=== PATIENT | female | born 1950 | race Caucasian/White ===

== ENCOUNTER → 2016-11-24 | Outpatient (CLI) | payer MEDICARE ==
[~2016-11-24] MED LIST: ANAS1TAB5 PO; CALC1TAB17 PO; DIAZ2TAB PO; DULO60CA25 PO; FENT1PAT5 TD; GABA-215 PO; LEVO25TA51 PO; SALINE FLUSH 10ml SYRINGE ONE; SIMV40TA82 PO; [UNRECOGNIZED DRUG - CODE] PO
--- NOTE | 2016-11-24 12:48 | DI ---
Indication: ITS.REASON: C50.411 Breast cancer PROCEDURE: NM BONE SCAN, WHOLE BODY: Encounter: Subsequent Comparison: Bone scan dated August 18, 2016 Technique: 26.7 mCi of Tc-99m MDP was administered intravenously. Anterior and posterior planar whole-body and spot images were obtained. FINDINGS: The scan demonstrates the expected normal biodistribution for the radiotracer. Multifocal right anterior rib uptake at the costochondral cartilage is again noted similar to the prior study. There are two areas of similar location uptake in the left anterior ribs as well. Left mandibular and sternal uptake is unchanged. There is more prominent uptake in the right L5 vertebra compared to the prior study. Degenerative uptake in both knees and mid feet. Degenerative uptake in the left upper cervical spine. Stable foci of mild uptake in the right posterior mid to lower thoracic spine. Impression: Increasing prominence of uptake at the L5 level, otherwise stable exam. .
== END ==
LOC: IMA 08:34
PROVIDERS: ATTEND Internal Medicine Hematology & Oncology
DX: C50.411 Malignant neoplasm of upper-outer quadrant of right female breast (principal); R94.8 Abnormal results of function studies of other organs and systems
CPT/HCPCS: 78306; A9503

== ENCOUNTER → 2016-12-16 | Outpatient (CLI) | payer MEDICARE ==
--- NOTE | 2016-12-16 15:48 | DI ---
Indication: ITS.REASON: Z79.899 Other manager intermediate (current) drug therapy PROCEDURE: NM MUGA, CARDIAC WALL MOTION: Encounter: Subsequent Comparison: September 23, 2016 RESTING RADIONUCLIDE EQUILIBRIUM ANGIOCARDIOGRAM: Following intravenous administration of 31.9mCi of technetium-99m pyrophosphate, with red blood cell labeling by in vitro technique, cardiac blood pool imaging was obtained in the three standard views. The left ventricular ejection fraction was 52.8%. Impression: Left ventricular ejection fraction of 52.8%. This is increased from 50.4% previously. .
== END ==
LOC: IMA 13:16
PROVIDERS: ATTEND Internal Medicine Hematology & Oncology
DX: Z79.899 Other long term (current) drug therapy (principal)
CPT/HCPCS: 78472; A9560

== ENCOUNTER 2017-02-06 11:50 | Observation (INO) ==
[2017-02-06] MEDS ORDERED: SALINE FLUSH 10ml SYRINGE IVF PRN (12:32)
--- NOTE | 2017-02-06 12:35 | Emergency Department Report ---
Chest Pain HPI - General Chief Complaint: Arrhythmia/Palpitations <Gorge Aguillon Q - 02/06/17 17:41> Stated Complaint: low heart rate <Gorge Aguillon Q - 02/06/17 17:41> Time Seen by Provider: 02/06/17 12:25 <Gorge Aguillon Q - 02/06/17 17:41> Source: patient, family (daughter) <Mary Beth Parekh 02/06/17 12:37> Mode of arrival: ambulatory <Mary Beth Parekh 02/06/17 12:37> Limitations: no limitations <Mary Beth Parekh 02/06/17 12:37> - History of Present Illness HPI narrative: She went to the cancer center today to get her chemotherapy for breast cancer with mets to bone. They noted that her pulse was in the 40s so they sent her here to ER for evaluation. She is here with her daughter. She has been told in the past that her heart rate has been low. She has gotten several MUGA scans and they noted that her HR was low but upon recheck it was normal. She was evaluated by a college admissions counselor but is unsure of his name. She also does report that yesterday evening she was having some chest pain in the center of her chest and on the left side. She denies any dizziness or lightheadedness but does feel slightly SOA. <Mary Beth Parekh N 02/06/17 12:37> MD complaint: chest pain <Mary Beth Parekh N 02/06/17 12:37> Occurred At: home <Mary Beth Parekh 02/06/17 12:37> Onset (ago): day(s) (1) <Mary Beth Parekh 02/06/17 12:37> Duration: constant <Mary Beth Parekh 02/06/17 12:37> Onset: during rest <Mary Beth Parekh 02/06/17 12:37> Pain location: substernal <Mary Beth Parekh 02/06/17 12:37> Severity: moderate <Mary Beth Parekh 02/06/17 12:37> Quality: sharp <Mary Beth Parekh 02/06/17 12:37> Pain radiation: none <LadanrosaMary Beth N - 02/06/17 12:37> Relieving factors: nothing <LadanrosaMary Beth N 02/06/17 12:37> Exacerbating factors: nothing <LadanrosaMary Beth N 02/06/17 12:37> Context: other (does get chemo therapy) <LadanrosaMary Beth N 02/06/17 12:37> Associated symptoms: other (bradycardia) <LadanrosaMary Beth N 02/06/17 12:37> Aspirin Today: unknown <LadanrosaMary Beth N 02/06/17 12:37> Nitro Today: no nitro taken today <LadanrosaMary Beth N 02/06/17 12:37> Treatments prior to arrival chest pain: none <LadanrosaMary Beth N 02/06/17 12:37> - Related Data On Oral Contraceptives: No <LadanrosaMary Beth 02/06/17 12:37> Home Medications Medication Instructions Recorded Confirmed Celecoxib [Celecoxib] 200 mg PO DAILY 02/06/17 02/06/17 Duloxetine [Cymbalta] 60 mg PO DAILY 02/06/17 02/06/17 FentaNYL PATCH [Duragesic Patch] 1 patch TD Q3D 02/06/17 02/06/17 Fexofenadine HCl [Allergy Relief] 180 mg PO DAILY 02/06/17 02/06/17 Gabapentin [Gabapentin] 300 mg PO TID 02/06/17 02/06/17 Hydrocodone/Acetaminophen [Lortab 1 tab PO Q4H PRN 02/06/17 02/06/17 5-325 mg Tablet] LORazepam [Ativan] 0.5 mg PO Q6HPRN PRN 02/06/17 02/06/17 Levothyroxine Sodium [Levoxyl] 25 mcg PO DAILY 02/06/17 02/06/17 Oxymetazoline HCl [Nasal [place]] 1 spray NS DAILY 02/06/17 02/06/17 Simvastatin [Zocor] 40 mg PO HS 02/06/17 02/06/17 Vitamin E Acetate [Vitamin E] 800 unit PO DAILY 02/06/17 02/06/17 <Gorge Aguillon Q - 02/06/17 17:41> Allergies Allergy/AdvReac Type Severity Reaction Status Date / Time acetaminophen AdvReac Severe VOMITING Verified 02/06/17 13:03 oxycodone AdvReac Severe VOMITING Verified 02/06/17 13:03 hydrocodone AdvReac Unknown VOMITING Verified 02/06/17 13:03 <Travis Aguillonn Q - 02/06/17 17:41> Review of Systems Constitutional: Denies: fever, chills, weakness, weight change <Nold,Mary Beth N 02/06/17 12:37> Cardiovascular: Reports: chest pain, dyspnea on exertion. Denies: palpitations , edema, syncope <Nold,Mary Beth N 02/06/17 12:37> Respiratory: Denies: cough, dyspnea, wheezes <Nold,Mary Beth N 02/06/17 12:37> Gastrointestinal: Denies: abdominal pain, nausea, vomiting, diarrhea, constipation <Nold,Mary Beth N 02/06/17 12:37> Musculoskeletal: Denies: back pain <Nold,Mary Beth N 02/06/17 12:37> Neurological: Denies: headache <Nold,Mary Beth 02/06/17 12:37> PFSH Patient Stated Medical History Hypotension Yes Other Cardiology Yes: BRADYCARDIA, HIGH CHOLESTEROL Gastroesophageal Reflux Yes Disease Other Musculoskeletal Yes: ARTHRITIS Other Reproductive Yes: BREAST CANCER <HennaGorge alanis Q - 02/06/17 17:41> Patient Stated Medical History Hypotension Yes Other Cardiology Yes: BRADYCARDIA, HIGH CHOLESTEROL Gastroesophageal Reflux Yes Disease Other Musculoskeletal Yes: ARTHRITIS Other Reproductive Yes: BREAST CANCER Breast cancer with mets hypothyroidism hyperlipidemia <NoAlannaa 02/06/17 12:37> Surgical History: Right sided mastectomy. partial thyroidectomy. appendectomy. hysterectomy <NorosaMary Beth N 02/06/17 12:37> Smoking status: Never smoker <Nold,Mary Beth N 02/06/17 12:37> Substance use type: does not use <Nold,Mary Beth N 02/06/17 12:37> Alcohol intake frequency: does not drink <NoldMary Beth N 02/06/17 12:37> Physical Exam - Limitations Limitations: no limitations <NoldMary Beth N 02/06/17 12:37> - General General appearance: alert, in no apparent distress <Mary Beth Parehk 02/06/17 12:37> - Normal Exams: ENMT:: No facial trauma, nasal exudates, pharyngeal erythema, or exudates are noted <Mary Beth Parekh 02/06/17 12:37> Neck:: Full range of motion, without adenopathy, JVD, bruits or thyromegaly < LadanMary Beth 02/06/17 12:37> Chest/Respirations:: Clear all reeder, with good airflow, and symmetry bilaterally <Mary Beth Parekh 02/06/17 12:37> Cardiovascular:: without murmur or gallop, Pulses 2+ all extremities, capillary refill, <2 seconds all extremities <Mary Beth Parekh 02/06/17 12:37> Abdomen:: Bowel sounds positive, soft, non-tender, non-distended, no hepatosplenomegaly, masses or bruits noted <Mary Beth Parekh 02/06/17 12:37> Lymphatic:: No lymphadenopathy, or lymphedema noted <Mary Beth Parekh 02/06/17 12:37> Integumentary:: No rashes, hives, or bruising noted <Mary Beth Parekh 02/06/17 12:37> Neurological:: Patient is alert, and oriented, cranial nerves, motor/sensory/ cerebellar, exams w/o gross deficits, to observation <Mary Beth Parekh 12:37> Psychiatric:: Patient exhibits, appropriate attention, emotion and affect < Mary Beth Parekh [facility] 02/06/17 12:37> - Cardiovascular Cardiovascular exam: Absent: regular rate (bradycardia) <Mary Beth Parekh 02/06 12:37> Course Vital Signs Temperature 98.0 F 02/06/17 11:52 Pulse Rate 41 L 02/06/17 11:52 Respiratory Rate 18 02/06/17 11:52 Blood Pressure 155/70 H 02/06/17 11:52 Pulse Oximetry 99 02/06/17 11:52 Temperature 98.4 F 02/06/17 15:00 Pulse Rate 45 L 02/06/17 15:00 Respiratory Rate 41 H 02/06/17 15:00 Blood Pressure 168/70 H 02/06/17 15:00 Pulse Oximetry 99 02/06/17 15:00 <Gorge Aguillon Q - 02/06/17 17:41> Vital Signs Temperature 98.0 F 02/06/17 11:52 Pulse Rate 41 L 02/06/17 11:52 Respiratory Rate 18 02/06/17 11:52 Blood Pressure 155/70 H 02/06/17 11:52 Pulse Oximetry 99 02/06/17 11:52 Temperature 98.4 F 02/06/17 15:00 Pulse Rate 45 L 02/06/17 15:00 Respiratory Rate 41 H 02/06/17 15:00 Blood Pressure 168/70 H 02/06/17 15:00 Pulse Oximetry 99 02/06/17 15:00 <IzabellaAlannaa N - 02/06/17 13:50> Chest Pain - MDM Narrative Medical decision making narrative: CBC is normal, BMP is normal. Troponin is normal. Chest xray report reviewed. Her pulse rate has remained in the upper 30s and lower 40s. She does continue to deny any chest pain at this time, dizziness, lightheadedness, or SOA. Did call Dr Samuel office and they do have Dr Eason listed as college admissions counselor. Spoke with Dr Eason and he will go ahead and admit at this time. <Mary Beth Parekh Rashida - 02/06/17 16:46> - Differential Diagnosis Likely: stable angina, unstable angina pectoris, atypical chest pain, chest pain (PE) <Mary Beth Parekh Rashida - 02/06/17 12:37> - Lab Data Attestation: I reviewed the patient's lab results. <Mary Beth Parekh Rashida - 02/06/17 16:46> Result diagrams: 02/06/17 12:59 02/06/17 12:59 <Gorge Aguillon Q - 02/06/17 17:41> Lab Results 02/06/17 02/06/17 Range/Units 12:59 12:59 WBC 6.6 (4.5-11.0) T/MM3 RBC 4.62 (4.00-5.20) M/MM3 Hgb 13.0 (12-16) GM/DL Hct 39.3 (36-46) % MCV 85.1 (80-100) UM3 MCH 28.1 (26-34) UUG MCHC 33.1 (31-37) GM/DL RDW Std Deviation 48.1 (36.9-50.2) FL Plt Count 272 (130-400) T/MM3 MPV 9.9 (9.4-12.4) UM3 Immature Gran % (Auto) 0.2 (0.0-0.5) % Neut % (Auto) 51.7 (33-66) % Lymph % (Auto) 37.3 (23-45) % Levy % (Auto) 7.7 (0-9.0) % Eos % (Auto) 2.6 (0-4) % Baso % (Auto) 0.5 (0-2) % Neut # 3.4 (1.8-7.7) T/MM3 Lymph # 2.5 (1-4.8) T/MM3 Levy # 0.5 (0-0.8) T/MM3 Eos # 0.2 (0-0.5) T/MM3 Baso # 0.0 (0-0.2) T/MM3 Abs Immat Gran (auto) 0.01 (0.00-0.03) T/MM3 Turbidity 20 (0-20) Sodium 146 H (134-144) MEQ/L Potassium 3.6 (3.6-5) MEQ/L Chloride 109 H (98-107) MEQ/L Carbon Dioxide 25 (22-30) MEQ/L Anion Gap 12 (5-15) MEQ/L BUN 9.0 (7-17) MG/DL Creatinine 0.6 L (0.7-1.2) MG/DL GFR Calculation 100 BUN/Creatinine Ratio 15 (6-26) RATIO Glucose 89 (65-110) MG/DL Calculated Osmolality 279 (261-280) MOSM/KG Calcium 9.8 (8.4-10.2) MG/DL Icterus Index 2 (0-7) Troponin I 0.012 (0-0.12) ng/ml Specimen Hemolysis 15 (0-25) <Gorge Aguillon Q - 02/06/17 17:41> Lab Results 02/06/17 02/06/17 Range/Units 12:59 12:59 WBC 6.6 (4.5-11.0) T/MM3 RBC 4.62 (4.00-5.20) M/MM3 Hgb 13.0 (12-16) GM/DL Hct 39.3 (36-46) % MCV 85.1 (80-100) UM3 MCH 28.1 (26-34) UUG MCHC 33.1 (31-37) GM/DL RDW Std Deviation 48.1 (36.9-50.2) FL Plt Count 272 (130-400) T/MM3 MPV 9.9 (9.4-12.4) UM3 Immature Gran % (Auto) 0.2 (0.0-0.5) % Neut % (Auto) 51.7 (33-66) % Lymph % (Auto) 37.3 (23-45) % Levy % (Auto) 7.7 (0-9.0) % Eos % (Auto) 2.6 (0-4) % Baso % (Auto) 0.5 (0-2) % Neut # 3.4 (1.8-7.7) T/MM3 Lymph # 2.5 (1-4.8) T/MM3 Levy # 0.5 (0-0.8) T/MM3 Eos # 0.2 (0-0.5) T/MM3 Baso # 0.0 (0-0.2) T/MM3 Abs Immat Gran (auto) 0.01 (0.00-0.03) T/MM3 Turbidity 20 (0-20) Sodium 146 H (134-144) MEQ/L Potassium 3.6 (3.6-5) MEQ/L Chloride 109 H (98-107) MEQ/L Carbon Dioxide 25 (22-30) MEQ/L Anion Gap 12 (5-15) MEQ/L BUN 9.0 (7-17) MG/DL Creatinine 0.6 L (0.7-1.2) MG/DL GFR Calculation 100 BUN/Creatinine Ratio 15 (6-26) RATIO Glucose 89 (65-110) MG/DL Calculated Osmolality 279 (261-280) MOSM/KG Calcium 9.8 (8.4-10.2) MG/DL Icterus Index 2 (0-7) Troponin I 0.012 (0-0.12) ng/ml Specimen Hemolysis 15 (0-25) <Mary Beth Parekh N - 02/06/17 13:50> - Radiology Data Attestation: I reviewed the patient's radiology results. <Mary Beth Parekh N - 10/24 16:46> Small right pleural effusion and basilar airspace disease, some of which may be chronic based on the patient's prior exams although an acute pneumonia cannot be entirely excluded. <Mary Beth Parekh N - 02/06/17 16:46> - ECG Data Tracing #1 ECG initial impression date: 02/06/17 <Travis Aguillonn Q - 02/06/17 17:41> ECG initial impression time: 14:48 <HennaGorge alanis Q - 02/06/17 17:41> Arrhythmias present: sinus félix <HennaGorge alanis Q - 02/06/17 17:39> HI/QRS/ST segment/T wave changes: non-specific ST-T wave changes <KeystoneGorge alanis Q - 02/06/17 17:39> Conduction abnormalities present: 2nd degree AV block, Mobitz II <Travis Aguillonn Q - 02/06/17 17:41> ECG compared to prior tracings: there are no prior tracings available for comparison <Keystone,Gorge Q - 02/06/17 17:41> Disposition Clinical Impression: Bradycardia <HennaGorge Q - 02/06/17 17:41> Disposition: 02 To [facility] <HennaGorge Q - 02/06/17 17:41> Condition: Stable <KeystoneGorge alanis Q - 02/06/17 17:41> Instructions: <Gorge Aguillon Q - 02/06/17 17:41> Prescriptions: No Action Levothyroxine Sodium [Levoxyl] 25 mcg PO DAILY FentaNYL PATCH [Duragesic Patch] 1 patch TD Q3D Duloxetine [Cymbalta] 60 mg PO DAILY Celecoxib [Celecoxib] 200 mg PO DAILY Vitamin E Acetate [Vitamin E] 800 unit PO DAILY Simvastatin [Zocor] 40 mg PO HS Gabapentin [Gabapentin] 300 mg PO TID Hydrocodone/Acetaminophen [Lortab 5-325 mg Tablet] 1 tab PO Q4H PRN PRN Reason: Pain Oxymetazoline HCl [Nasal [place]] 1 spray NS DAILY Fexofenadine HCl [Allergy Relief] 180 mg PO DAILY LORazepam [Ativan] 0.5 mg PO Q6HPRN PRN PRN Reason: Anxiety <Gorge Aguillon Q - 02/06/17 17:41> Referrals: Jose Samuel MD [Primary Care Provider] - <Gorge Aguillon Q - 02/06/17 17:41> Forms: <Gorge Aguillon Q - 02/06/17 17:41> Time of Disposition: 13:50 <Mary Beth Parekh N - 02/06/17 13:50> - Seen By: midlevel <Mary Beth Parekh N - 02/06/17 13:50>
--- NOTE | 2017-02-06 13:27 | XRay Report ---
INDICATION: chest pain PROCEDURE: CHEST 2-VIEWS UPRIGHT (PA & LAT) Encounter: Initial COMPARISON: February 17, 2014 FINDINGS: Right IJ port catheter remains in place. Small right pleural effusion, improved from the prior study. There is some hazy airspace opacity in the right lung base which may be chronic. Upper lung reeder are clear. No pneumothorax. Heart size and mediastinal contours are within normal limits. Mild degenerative change in the spine. Impression: Small right pleural effusion and basilar airspace disease, some of which may be chronic based on the patient's prior exams although an acute pneumonia cannot be entirely excluded. Recommend clinical and laboratory correlation. .
[2017-02-06] MEDS ORDERED: NS 1,000 ML IV SCH (13:45)
[2017-02-06] MEDS ORDERED: LORazepam 0.5 MG TABLET PO PRN ×2 (15:13→19:08)
[2017-02-06] MEDS: NS 1,000 ML IV SCH ×2 (15:32→20:54)
[2017-02-06] MEDS ORDERED: ATROPINE 1 MG/10 ML SYRINGE IVP ONE (17:00)
[2017-02-06] MEDS ORDERED: APAP/CODEINE 300 MG/30 MG TABLET PO PRN (19:03)
[2017-02-06] MEDS ORDERED: BISACODYL 10 MG SUPPOSITORY RECTALLY PRN (19:08)
[2017-02-06] MEDS ORDERED: ATROPINE 1 MG/10 ML SYRINGE IVP PRN (19:08)
[2017-02-06] MEDS ORDERED: ONDANSETRON 4 MG/2 ML INJECTION IVP PRN (19:08)
[2017-02-06] MEDS ORDERED: MORPHINE SULFATE 4 MG SYRINGE IVP PRN ×2 (19:08)
[2017-02-06] MEDS ORDERED: MAG-AL + SIM ORAL LIQUID 30ml PO PRN (19:08)
[2017-02-06] MEDS ORDERED: BISACODYL E.C. 5 MG TABLET PO PRN (19:08)
[2017-02-06] MEDS ORDERED: METOCLOPRAMIDE 10mg/2ml INJECTION IVP PRN (19:08)
[2017-02-06] MEDS ORDERED: PROMETHAZINE 25 MG INJECTION IVP PRN (19:08)
[2017-02-06] MEDS: HYDROCODONE/APAP 5mg/325mg TABLET PO PRN (19:32)
[2017-02-07] MEDS: HYDROCODONE/APAP 5mg/325mg TABLET PO PRN (01:36)
[2017-02-07] MEDS: CEFAZOLIN 1 G in NS 100 ML IV SCH ×2 (01:38→08:58)
[2017-02-07] MEDS ORDERED: DULOXETINE 60 MG CAPSULE PO SCH (09:00)
[2017-02-07] MEDS ORDERED: GABAPENTIN 300 MG CAPSULE PO SCH ×2 (09:00→21:00)
[2017-02-07] MEDS ORDERED: CELECOXIB 200 MG CAPSULE PO SCH (09:00)
[2017-02-07] MEDS: ACETAMINOPHEN 325 MG TABLET PO PRN ×2 (09:44→17:40)
[2017-02-07] MEDS ORDERED: LEVOTHYROXINE 25 MCG TABLET PO SCH (10:00)
[2017-02-07] MEDS ORDERED: LORATADINE 10 MG TABLET PO SCH (11:30)
--- NOTE | 2017-02-07 13:51 | XRay Report ---
Indication: post ppm PROCEDURE: XR chest post-procedure 1V: Encounter: Initial Comparison: February 06, 2017 Findings: New left-sided dual-lead cardiac pacemaker with right atrial and right ventricular leads. These project in appropriate position. Right IJ port catheter. No pneumothorax. Increasing right basilar airspace opacity, possibly atelectasis. Elevated right hemidiaphragm. Heart size and mediastinal contours are stable. Pulmonary vascularity is unchanged. Impression: New left-sided pacemaker without evidence of pneumothorax. .
--- NOTE | 2017-02-07 13:56 | XRay Report ---
Indication: post pacemaker placement PROCEDURE: XR chest 1V: Encounter: Initial Comparison: February 06, 2017 Findings: Left pacemaker appears stable. No pneumothorax. Lung reeder are unchanged. Heart size and mediastinal contours are stable. Pulmonary vascularity is stable. Impression: Stable appearance of the left pacemaker without evidence of pneumothorax. .
--- NOTE | 2017-02-07 18:13 | Discharge Summary ---
Discharge Plan - Med Rec/Dispo Referrals/Follow Up: Claire Eason MD [Physician] - 02/23/17 3:00 pm (Follow up appt. with Dr. Ward Eason) Prescriptions: New RX: Acetaminophen [Tylenol] 325 - 650 mg PO Q5H PRN PRN Reason: Pain RX: Minocycline [Minocin] 100 mg PO ACBID #14 cap Continue RX: Levothyroxine Sodium [Levoxyl] 25 mcg PO DAILY RX: FentaNYL PATCH [Duragesic Patch] 1 patch TD Q3D RX: Duloxetine [Cymbalta] 60 mg PO DAILY RX: Celecoxib 200 mg PO DAILY RX: Vitamin E Acetate [Vitamin E] 800 unit PO DAILY RX: Simvastatin [Zocor] 40 mg PO HS RX: Gabapentin 300 mg PO TID RX: Hydrocodone/Acetaminophen [Lortab 5-325 mg Tablet] 1 tab PO Q4H PRN PRN Reason: Pain RX: Oxymetazoline HCl [Nasal [place]] 1 spray NS DAILY RX: Fexofenadine HCl [Allergy Relief] 180 mg PO DAILY RX: LORazepam [Ativan] 0.5 mg PO Q6HPRN PRN PRN Reason: Anxiety - Disposition 01 Discharged Home, Self-Care
[2017-02-07] MEDS ORDERED: LORazepam 0.5 MG TABLET PO PRN (18:18)
[2017-02-07] MEDS ORDERED: HYDROCODONE/APAP 5/325mg TAB #6 *ED PREPACK SENT HOME PRN (18:18)
[2017-02-07] MEDS ORDERED: VERAPAMIL 5 MG/2 ML VIAL IVP ONE (18:54)
[2017-02-07] MEDS ORDERED: LIDOCAINE 1% (10mg/ml) 30ml SDV INJ INJ ONE (18:54)
[2017-02-07] MEDS ORDERED: BACITRACIN 50,000 UNIT INJECTION INJ ONE (18:54)
[2017-02-07] MEDS ORDERED: HEPARIN 1,000 UNITS/500 ML PREMIX (*CVL ONLY*) IV ONE (18:54)
[2017-02-07] MEDS ORDERED: NITROGLYCERIN 50MG INJECTION IV ONE (18:54)
[2017-02-07] MEDS ORDERED: ATROPINE 1 MG/10 ML SYRINGE IVP ONE (18:54)
[2017-02-07] MEDS ORDERED: CEFAZOLIN 1 G INJECTION IJ ONE (18:54)
[2017-02-07] MEDS ORDERED: MIDAZOLAM 2mg/2ml INJECTION IVP ONE (18:54)
[2017-02-07] MEDS ORDERED: WATER FOR INJECTION STERILE INJ ONE (18:54)
[2017-02-07] MEDS ORDERED: FentaNYL 100 MCG/2 ML INJECTION IVP ONE (18:54)
[2017-02-07] MEDS ORDERED: HEPARIN 1,000 UNIT/ML INJECTION 10ml IVP ONE (18:54)
[2017-02-07] MEDS ORDERED: SALINE FLUSH 10ml SYRINGE IV ONE (18:54)
[2017-02-07] MEDS ORDERED: NS 1,000 ML IV ONE (18:54)
[2017-02-07] MEDS ORDERED: MINOCYCLINE 100 MG CAPSULE PO SCH (19:02)
--- NOTE | 2017-02-07 19:23 | Cardiology History & Physical ---
History of Present Illness Chief complaint: low heart rate HPI: Mrs. Worrell is a very pleasant 66-year-old female without prior known heart disease she presented to the cancer center today to get her chemotherapy for breast cancer metastatic to the bone she's had that for 3 years and she is expected to be around for years to come according to the family. He noted that her pulse rate was in the 40s and sent her to the emergency room for further evaluation. Evaluation revealed bradycardia in the 40s and I was contacted for further assistance. Patient is a poor historian. She is also extremely hard of hearing. She describes over one month history of fatigue and shortness of breath. She complains of chest pain described as a "" heartburn that happens with exertion and has been going on for about a month. Her daughter also says that yesterday while holding her baby grandson, patient complained of feeling faint. She didn't pass out or had any falls. Upon my evaluation patient was noted to have second-degree AV block 2-1 conduction with underlying right bundle -branch block and nonspecific ST-T changes. I advised her on the role of heart catheterization and permanent pacemaker implant and she and her family agreed to proceed. She is admitted to a telemetry observation outpatient bed expected length of stay less than 2. Mid Nights. DOS 02/06/2017 patient seen about 2 PM. Review of Systems - Constitutional Constitutional: Present: fatigue, weakness, weight loss. Absent: chills, daytime sleepiness, fever(s), night sweats - EENMT Eyes: Absent: blurry vision, diplopia Ears: Present: as per HPI Balance: Absent: vertigo, falling to one side Mouth/Throat: Absent: sore throat - Cardiovascular Cardiovascular: Present: chest pain. Absent: palpitations, syncope, orthopnea, edema Vascular: Absent: intermittent claudication - Respiratory Respiratory: Present: cough, dyspnea (mild). Absent: hemoptysis - Gastrointestinal Gastrointestinal: Absent: abdominal pain, change in bowel habits, hematemesis, hematochezia, melena, nausea - Genitourinary Genitourinary: Absent: hematuria - Musculoskeletal Musculoskeletal: Present: back pain - Neurological Neurological: Present: dizziness. Absent: abnormal speech, confusion - Psychiatric Psychiatric: Present: anxiety, panic attacks. Absent: depression - Hematologic/Lymphatic Hematologic/Lymphatic: Absent: easy bruising - Allergic/Immunologic Allergic/Immunologic: Absent: throat swelling PFSH Patient Stated Medical History Peripheral Neuropathy Yes: finger and toes Hearing Loss Yes Other HEENT Yes: thyroid removed, Deaf Hypotension Yes Other Cardiology Yes: BRADYCARDIA, HIGH CHOLESTEROL Gastroesophageal Reflux Yes Disease Other Musculoskeletal Yes: ARTHRITIS Shingles Yes: this year Other Reproductive Yes: BREAST CANCER Surgical History: Right sided mastectomy. partial thyroidectomy. appendectomy. hysterectomy Smoking status: Never smoker Household members: spouse Medications Home Medications Medication Instructions Recorded Confirmed Type Celecoxib 200 mg PO DAILY 02/06/17 02/06/17 History Duloxetine [Cymbalta] 60 mg PO DAILY 02/06/17 02/06/17 History FentaNYL PATCH [Duragesic Patch] 1 patch TD Q3D 02/06/17 02/06/17 History Fexofenadine HCl [Allergy Relief] 180 mg PO DAILY 02/06/17 02/06/17 History Gabapentin 300 mg PO TID 02/06/17 02/06/17 History Hydrocodone/Acetaminophen [Lortab 1 tab PO Q4H PRN 02/06/17 02/06/17 History 5-325 mg Tablet] LORazepam [Ativan] 0.5 mg PO Q6HPRN PRN 02/06/17 02/06/17 History Levothyroxine Sodium [Levoxyl] 25 mcg PO DAILY 02/06/17 02/06/17 History Oxymetazoline HCl [Nasal [place]] 1 spray NS DAILY 02/06/17 02/06/17 History Simvastatin [Zocor] 40 mg PO HS 02/06/17 02/06/17 History Vitamin E Acetate [Vitamin E] 800 unit PO DAILY 02/06/17 02/06/17 History Allergies Allergy/AdvReac Type Severity Reaction Status Date / Time acetaminophen AdvReac Severe VOMITING Verified 02/06/17 13:03 oxycodone AdvReac Severe VOMITING Verified 02/06/17 13:03 hydrocodone AdvReac Unknown VOMITING Verified 02/06/17 13:03 Exam Vital signs: Temp Pulse Resp BP Pulse Ox 46 Other vital signs are all stable and afebrile oxygen saturation is normal blood pressure is stable - Constitutional no acute distress - Routine Neck Exam Present: supple, normal carotid upstroke. Absent: JVD, carotid bruit, lymphadenopathy, thyromegaly - Routine Chest/Breast/Axilla Exam Chest wall: Absent: tenderness - Routine Respiratory Exam Present: CTA bilaterally. Absent: accessory muscle use - Routine Cardiovascular Exam Present: S1, S2, murmur (systolic 2/6 at the base of the heart), S4, bradycardia. Absent: RRR (bradycardic regular), rubs, S3, click, JVD - Routine Abdominal Exam Present: soft, normoactive bowel sounds, non distended, non tender. Absent: tenderness - Routine Extremities Exam Present: non tender, full ROM, normal capillary refill. Absent: cyanosis, clubbing, edema - Routine Back/Spine/Pelvis Exam Back/Spine: Present: full ROM - Routine Skin Exam Present: dry, warm. Absent: cyanosis, erythema, rash - Routine Neurological Exam Present: alert, oriented X3, CN II-XII intact (except extremely hard of hearing) , vision grossly intact, normal speech. Absent: motor deficit, hearing grossly intact, facial asymmetry - Routine Psychiatric Exam Present: normal affect, normal thought process, cooperative, good insight, anxious Results 02/07/17 04:37 02/07/17 04:37 CBC 02/07/17 Range/Units 04:37 WBC 6.7 (4.5-11.0) T/MM3 RBC 4.26 (4.00-5.20) M/MM3 Hgb 11.9 L (12-16) GM/DL Hct 36.5 (36-46) % Plt Count 242 (130-400) T/MM3 Comprehensive Metabolic Panel 02/07/17 Range/Units 04:37 Sodium 143 (134-144) MEQ/L Potassium 3.1 L (3.6-5) MEQ/L Chloride 110 H (98-107) MEQ/L Carbon Dioxide 23 (22-30) MEQ/L BUN 7.0 (7-17) MG/DL Creatinine 0.6 L (0.7-1.2) MG/DL Glucose 74 (65-110) MG/DL Calcium 8.4 D (8.4-10.2) MG/DL Intake and Output 02/07/17 02/07/17 02/07/17 06:59 14:59 22:59 Intake Total 1120.0 / 1120.0 342.5 / 342.5 Output Total 250 / 250 300 / 300 400 / 400 Balance 870.0 / 870.0 42.5 / 42.5 -400 / -400 Intake: IV 640.0 / 640.0 342.5 / 342.5 Kefzol 1 G In Normal 100 / 100 120 / 120 Saline 100 ml @ 200 mls/ hr IV Q8HR JANEL Rx#: [id number] Normal Saline 1,000 ml @ 540.0 / 540.0 222.5 / 222.5 75 mls/hr IV .[id number] JANEL Rx#:[id number] Oral 480 / 480 Output: Urine 250 / 250 300 / 300 400 / 400 Other: # Voids 2 1 Weight 105.4 kg Patient Weight 02/08/17 06:59 Weight 105.4 kg - EKG Interpretation EKG: sinus rhythm EKG shows: bradycardia (2:1 AV block right bundle-branch block) EKG interpretations - Blocks, axis, hypertrophy, ST abn AV and intraventricular conduction: 2 to 1 AV block Assessment and Plan (1) Second degree AV block Current visit: Yes Status: Acute Admit to telemetry bed indication TO RISK AND BENEFITS OF PERMANENT PACEMAKER IMPLANT WAS FULLY DISCUSSED WITH PATIENT AND HER FAMILY AND THEY AGREE TO PROCEED, INCLUDING BUT NOT LIMITED TO RISK OF BLEEDING INFECTION PNEUMOTHORAX AND VERY rarely MAJOR COMPLICATIONs including WERE DISCUSSED (2) Exertional chest pain Current visit: Yes Status: Acute Echocardiogram . heart catheterization the indications alternatives, benefits were discussed in detail including possible vascular damage that allergy renal failure HI stroke or and they agree to proceed (3) Hyperlipidemia Current visit: Yes Status: Acute (4) Breast cancer metastasized to bone Current visit: Yes Status: Chronic Patient has had this for 3 years and life expectancy exceeds several years per family according to her oncologist Dr. Albarado Sepsis Assessment - Evaluation Sepsis screening result: No Definite Risk - Focused Exam Vital Signs Temp Pulse Resp BP Pulse Ox 02/07/17 12:32 84 02/07/17 12:15 97.4 F 94 18 123/71 95 02/07/17 08:02 98.7 F 83 18 113/65 95 Capillary refill: < 2-3 Seconds
--- NOTE | 2017-02-07 19:55 | Discharge Summary ---
Discharge Information Date of admission: 02/06/17 13:48 Attending Physician: Claire Eason MD Primary care physician: Jose Samuel MD - Discharge Diagnosis (1) Second degree AV block Status: Acute (2) Exertional chest pain Status: Acute (3) Hyperlipidemia Status: Acute (4) Breast cancer metastasized to bone Status: Chronic - Laboratory Labs: 02/07/17 04:37 02/07/17 04:37 History of Present Illness HPI: Mrs. Worrell is a very pleasant 66-year-old female without prior known heart disease she presented to the cancer center today to get her chemotherapy for breast cancer metastatic to the bone she's had that for 3 years and she is expected to be around for years to come according to the family. He noted that her pulse rate was in the 40s and sent her to the emergency room for further evaluation. Evaluation revealed bradycardia in the 40s and I was contacted for further assistance. Patient is a poor historian. She is also extremely hard of hearing. She describes over one month history of fatigue and shortness of breath. She complains of chest pain described as a "" heartburn that happens with exertion and has been going on for about a month. Her daughter also says that yesterday while holding her baby grandson, patient complained of feeling faint. She didn't pass out or had any falls. Upon my evaluation patient was noted to have second-degree AV block 2-1 conduction with underlying right bundle -branch block and nonspecific ST-T changes. I advised her on the role of heart catheterization and permanent pacemaker implant and she and her family agreed to proceed. She is admitted to a telemetry observation outpatient bed expected length of stay less than 2. Mid Nights. DOS 02/06/2017 patient seen about 2 PM. 02/07/17 19:58 Update his history of present illness this morning patient is having mild cough she thinks she is had this for some time denies fever chills or phlegm production denies dyspnea when ambulating to CCU with the RN without any difficulties she is quite anxious to go home and has slept well. Mild incisional discomfort as treated with Tylenol only denies chest pain denies pain at the pacemaker site or heart catheter site in the right wrist Hospital Course Hospital course: Ms. Worrell is a 66 year old female DVT Prophylaxis: SCD's Exam Vital signs: Temp Pulse Resp BP Pulse Ox 98.9 F 88 18 123/71 95 02/07/17 16:00 02/07/17 16:00 02/07/17 12:15 02/07/17 12:15 02/07/17 12:15 - Constitutional no acute distress - Routine HEENT Exam Head: Present: normocephalic, atraumatic Eye: Present: EOMI, PERRL - Routine Neck Exam Present: normal carotid upstroke. Absent: JVD, carotid bruit, thyromegaly - Routine Chest/Breast/Axilla Exam Chest wall: Present: pacemaker (site looks excellent without swelling drainage erythema or excessive tenderness) - Routine Respiratory Exam Present: decreased breath sounds (R base) - Routine Cardiovascular Exam Present: RRR, S1, S2 - Routine Abdominal Exam Present: soft, normoactive bowel sounds, non tender. Absent: distended - Routine Skin Exam Present: intact, warm (heart catheter site right wrist looks. Dry digits pink and warm radial pulse 2+ normal sensory motor exam). Absent: rash - Routine Psychiatric Exam Present: normal affect, cooperative, anxious Results 02/07/17 04:37 02/07/17 04:37 CBC 02/07/17 Range/Units 04:37 WBC 6.7 (4.5-11.0) T/MM3 RBC 4.26 (4.00-5.20) M/MM3 Hgb 11.9 L (12-16) GM/DL Hct 36.5 (36-46) % Plt Count 242 (130-400) T/MM3 Comprehensive Metabolic Panel 02/07/17 Range/Units 04:37 Sodium 143 (134-144) MEQ/L Potassium 3.1 L (3.6-5) MEQ/L Chloride 110 H (98-107) MEQ/L Carbon Dioxide 23 (22-30) MEQ/L BUN 7.0 (7-17) MG/DL Creatinine 0.6 L (0.7-1.2) MG/DL Glucose 74 (65-110) MG/DL Calcium 8.4 D (8.4-10.2) MG/DL Intake and Output 02/07/17 02/07/17 02/07/17 06:59 14:59 22:59 Intake Total 1120.0 / 1120.0 342.5 / 342.5 Output Total 250 / 250 300 / 300 400 / 400 Balance 870.0 / 870.0 42.5 / 42.5 -400 / -400 Intake: IV 640.0 / 640.0 342.5 / 342.5 Kefzol 1 G In Normal 100 / 100 120 / 120 Saline 100 ml @ 200 mls/ hr IV Q8HR JANEL Rx#: [id number] Normal Saline 1,000 ml @ 540.0 / 540.0 222.5 / 222.5 75 mls/hr IV .[id number] JANEL Rx#:[id number] Oral 480 / 480 Output: Urine 250 / 250 300 / 300 400 / 400 Other: # Voids 2 1 Weight 105.4 kg Patient Weight 02/08/17 06:59 Weight 105.4 kg - Imaging and Cardiology Imaging & Cardiology Narrative: 02/07/17 19:56 Chest x-ray normal position of dual-chamber permanent pacemaker without pneumothorax questionable infiltrate in the right base versus atelectasis official radiology reading no changes from previous Clinical correlation ( patient denies phlegm production or dyspnea no fever. She 's been ambulatory white count is normal She is treated with minocycline anyway post pacemaker) - EKG Interpretation EKG: sinus rhythm (ventricular paced), not changed from: (pacemaker interrogation showed normal function normal sensing and pacing, now 100% AV paced) Discharge Plan - Med Rec/Dispo Referrals/Follow Up: Claire Eason MD [Physician] - 02/23/17 3:00 pm (Follow up appt. with Dr. Ward Eason) Prescriptions: New Acetaminophen [Tylenol] 325 - 650 mg PO Q5H PRN PRN Reason: Pain Minocycline [Minocin] 100 mg PO ACBID #14 cap Continue Levothyroxine Sodium [Levoxyl] 25 mcg PO DAILY FentaNYL PATCH [Duragesic Patch] 1 patch TD Q3D Duloxetine [Cymbalta] 60 mg PO DAILY Celecoxib 200 mg PO DAILY Vitamin E Acetate [Vitamin E] 800 unit PO DAILY Simvastatin [Zocor] 40 mg PO HS Gabapentin 300 mg PO TID Hydrocodone/Acetaminophen [Lortab 5-325 mg Tablet] 1 tab PO Q4H PRN PRN Reason: Pain Oxymetazoline HCl [Nasal [place]] 1 spray NS DAILY Fexofenadine HCl [Allergy Relief] 180 mg PO DAILY LORazepam [Ativan] 0.5 mg PO Q6HPRN PRN PRN Reason: Anxiety - Disposition 01 Discharged Home, Self-Care
[2017-02-07] MEDS ORDERED: SIMVASTATIN 40 MG TABLET PO SCH (22:00)
[2017-02-08] MEDS ORDERED: VITAMIN E 400 UNIT CAPSULE PO SCH (09:00)
[2017-02-08] MEDS ORDERED: OXYMETAZOLINE 0.05% NASAL SPRAY 15ml NS SCH (09:00)
[2017-02-08] MEDS ORDERED: CELECOXIB 200 MG CAPSULE PO SCH (09:00)
[2017-02-08] MEDS ORDERED: LEVOTHYROXINE 25 MCG TABLET PO SCH (09:00)
[2017-02-08] MEDS ORDERED: DULOXETINE 60 MG CAPSULE PO SCH (09:00)
[2017-02-08] MEDS ORDERED: FEXOFENADINE 180 MG TABLET PO SCH (09:00)
--- NOTE | 2017-02-11 09:43 | Cardiac Catheterization Report ---
DATE 02/06/2017 PROCEDURE PERFORMED Left heart catheterization LV gram Coronary angiogram INDICATIONS A lady with risk factors presented with symptomatic second degree AV block 2:1 AV conduction and exertional left sided chest pain. She was counseled on the indications, alternatives, risks and benefits of heart catheterization. She agreed to proceed. PREMEDICATION IV Versed and fentanyl. Please refer to nursing notes for exact amounts given. NARRATIVE OF PROCEDURE The patient was brought to the cardiac cath laboratory. She received IV sedation then I went again and injected lidocaine 1% in the right wrist. I used a micropuncture needle to cannulate the right radial artery without difficulty. Modified Seldinger percutaneous technique was used. A 6-Urdu Slender sheath was introduced, side arm was flushed and aspirated. I elected not to give Verapamil due to bradycardia. No heparin due to anticipated pacemaker. Received intraarterial nitroglycerin 300 mcg and then proceeded with the Robert catheter to perform above-mentioned procedure. Procedure was well tolerated. There were no immediate complications. FINDINGS 1. HEMODYNAMICS: Please refer to print out sheet. They were unremarkable. No pressure gradient across the aortic valve or intracavitary present. 2. CORONARY ANGIOGRAM: LV gram shows normal wall motion, normal systolic function. Normal ejection fraction. Left main coronary artery is large and normal. Scattered calcifications in the coronary artery is noted, especially in the LAD which exhibits mild luminal irregularities, nothing occlusive, only tiny diagonal branches originate from the LAD. The left circumflex artery is a fairly large caliber vessel that gives origin to many obtuse marginal branches, three smaller ones. One major branch, a PLB branch and a PDA and the system exhibits only minor scattered plaquing, nothing occlusive. Right coronary artery is a medium caliber co-dominant vessel, exhibits mild proximal plaquing, nonocclusive. Distally small RPLB branch and RPDA are free from any occlusive disease. Proximal RCA stenosis is up to 20%. LV gram shows normal wall motion , normal contractility, normal LV systolic function. IMPRESSION Mild nonocclusive coronary artery disease with normal LV systolic function and proximal coronary calcification. MTDD
--- NOTE | 2017-02-11 13:34 | Echocardiogram ---
DATE 02/06/2017 INDICATION Second degree AV block, exertional chest pain. TECHNICAL QUALITY: Technically good 2D, M-mode and Doppler echocardiographic images were submitted for interpretation. Images were reviewed in the acute care setting before we did her cardiac procedure, and she is in second degree AV block during the study. FINDINGS 1. CARDIAC CHAMBERS. All cardiac chambers are normal in size. Aortic root diameter is normal. RV size and contractility appear normal. 2. LV FUNCTION. Wall thickness is normal. Wall motion analysis is normal. Systolic function is normal. EF of 65%. 3. VALVES. Aortic and mitral valves exhibit mild sclerotic changes with normal valve opening. 4. DOPPLER. Doppler shows mild regurgitation involving mitral and tricuspid valves. Trace pulmonic insufficiency is present. Systolic PA pressure is estimated at 46-51 mmHg consistent with moderate pulmonary hypertension. 5. No evidence of pericardial effusion, intracardiac masses or demonstrable shunts. 6. Elevated central venous pressure. IMPRESSION 1. Normal cardiac chamber size. 2. Normal LV systolic function, EF of 65% with normal E/A ratio. 3. Sclerotic changes of the aortic and mitral valves, mild. 4. Mild mitral regurgitation. 5. Mild tricuspid regurgitation. 6. Moderate pulmonary hypertension. 7. Elevated central venous pressure with dilated IVC and a partial response. 8. No evidence of pericardial effusion, intracardiac masses or demonstrable shunts. MTDD
== END 2017-02-07 18:55 | disposition home or self-care (01) ==
LOC: SRG 11:50 → ED 11:50 → CCU 14:29
PROVIDERS: ADMIT Internal Medicine Cardiovascular Disease; ATTEND Internal Medicine Cardiovascular Disease